=== PATIENT | male | born 1990 | race Caucasian/White ===

== ENCOUNTER 2021-05-08 23:51 | Emergency (ER) | payer MEDICAID ==
[~2021-05-08] VITALS: Ht 182.9 cm; Wt 83.9 kg
[2021-05-09] MEDS ORDERED: ONDANSETRON HCL/PF 4 MG/2 ML VIAL ONE (01:18)
[2021-05-09] MEDS ORDERED: ONDANSETRON HCL/PF - ER 4 MG/2 ML VIAL IV ONE (01:30)
[2021-05-09] MEDS ORDERED: IV NS 0.9% 1,000 ML BAG IV ONE (01:30)
[2021-05-09 01:40] LABS: BASOPHILS % (AUTO) 0.4 % (0.0-2.0); EOSINOPHILS % (AUTO) 0.1 % (0.0-6.0); HEMATOCRIT 36 % (39-51); HEMOGLOBIN 12.3 g/dL (13.5-17.5); LYMPHOCYTES % (AUTO) 11.5 % (20.0-44.0); MEAN CORPUSCULAR HGB CONC 34 g/dl (31.0-36.0); MEAN CORPUSCULAR VOLUME 88 fL (80-96); MONOCYTES # (AUTO) 0.8 K/uL (0.1-1.30); MONOCYTES % (AUTO) 9.4 % (2.0-12.0); NEUTROPHILS # (AUTO) 6.7 K/uL (1.8-8.9); NEUTROPHILS % (AUTO) 78.6 % (43.0-81.0); PLATELET COUNT (AUTO) 268 K/uL (150-450); RED BLOOD CELL COUNT(AUTO) 4.08 MIL/uL (4.5-6.0); WHITE BLOOD COUNT (AUTO) 8.5 K/uL (4.3-11.0)
[2021-05-09 01:52] LABS: CALCIUM, SERUM 8.1 mg/dL (8.5-10.1); CREATININE 0.9 mg/dL (0.6-1.3); POTASSIUM 3.3 mmol/L (3.5-5.1)
[2021-05-09 01:57] LABS: ALBUMIN 3.9 g/dL (3.4-5.0); BILIRUBIN,TOTAL 0.6 mg/dL (0.2-1.0); TOTAL PROTEIN, SERUM 7.2 g/dL (6.4-8.2)
--- NOTE | 2021-05-09 02:19 | NUR ---
CORRECTION: IV 1L NS START TIME: 118 END TIME: 218
[2021-05-09 02:25] VITALS: BP 135/89
--- NOTE | 2021-05-09 02:25 | NUR ---
Patient discharged to home in stable condition. Written and verbal after care instructions given. Patient verbalizes understanding of instruction.
== END 2021-05-09 02:34 | disposition home or self-care (01) ==
LOC: ER 23:56
DX: R11.0 Nausea (principal); R10.13 Epigastric pain; F10.10 Alcohol abuse, uncomplicated; Z60.2 Problems related to living alone; Y90.9 Presence of alcohol in blood, level not specified
CPT/HCPCS: 36415; 80053; 83690; 85025; 96361; 96374; 99283; J2405 ×2; J7030

== ENCOUNTER 2021-05-10 12:46 | Emergency (ER) | payer MEDICAID ==
[~2021-05-10] VITALS: Ht 188 cm; Wt 83.9 kg
[2021-05-10 13:18] LABS: BASOPHILS # (AUTO) 0.1 K/uL (0.0-0.2); BASOPHILS % (AUTO) 1.3 % (0.0-2.0); EOSINOPHILS % (AUTO) 1.1 % (0.0-6.0); HEMATOCRIT 36 % (39-51); HEMOGLOBIN 12.6 g/dL (13.5-17.5); LYMPHOCYTES # (AUTO) 0.8 K/uL (0.8-4.8); LYMPHOCYTES % (AUTO) 8.2 % (20.0-44.0); MEAN CORPUSCULAR HGB CONC 35 g/dl (31.0-36.0); MEAN CORPUSCULAR VOLUME 87 fL (80-96); MONOCYTES % (AUTO) 10.5 % (2.0-12.0); NEUTROPHILS # (AUTO) 7.3 K/uL (1.8-8.9); NEUTROPHILS % (AUTO) 78.9 % (43.0-81.0); PLATELET COUNT (AUTO) 299 K/uL (150-450); RED BLOOD CELL COUNT(AUTO) 4.12 MIL/uL (4.5-6.0); WHITE BLOOD COUNT (AUTO) 9.2 K/uL (4.3-11.0)
[2021-05-10 13:30] LABS: ALANINE AMINOTRANSFERASE 62 U/L (12-78); ALBUMIN 3.7 g/dL (3.4-5.0); ALCOHOL, BLOOD 77 mg/dL (0-0); ALKALINE PHOSPHATASE 95 U/L (46-116); ASPARTATE AMINOTRANSFERASE 86 U/L (15-37); BILIRUBIN,DIRECT 0.2 mg/dL (0.0-0.2); BILIRUBIN,TOTAL 0.8 mg/dL (0.2-1.0); CALCIUM, SERUM 8.5 mg/dL (8.5-10.1); CARBON DIOXIDE 26 mmol/L (21-32); CHLORIDE 102 mmol/L (98-107); CREATININE 0.8 mg/dL (0.6-1.3); GLUCOSE 82 mg/dL (74-106); POTASSIUM 3.2 mmol/L (3.5-5.1); SODIUM SERUM 139 mmol/L (136-145); TOTAL PROTEIN, SERUM 7.3 g/dL (6.4-8.2); UREA NITROGEN, BLOOD 12 mg/dL (7-18)
[2021-05-10] MEDS ORDERED: ONDANSETRON 4 MG TAB.RAPDIS SL ONE (13:30)
[2021-05-10 13:31] LABS: ACETAMINOPHEN < 2 ug/ml (10-30)
[2021-05-10] MEDS ORDERED: ONDANSETRON 4 MG TAB.RAPDIS ONE (13:35)
[2021-05-10] MEDS ORDERED: LORAZEPAM 1 MG TABLET PO ONE (14:00)
[2021-05-10] MEDS ORDERED: LORAZEPAM 1 MG TABLET ONE (14:03)
[2021-05-10 14:28] VITALS: BP 155/100
== END 2021-05-10 12:50 | disposition home or self-care (01) ==
LOC: ER 12:48
DX: F10.10 Alcohol abuse, uncomplicated (principal); Y90.3 Blood alcohol level of 60-79 mg/100 ml; R11.0 Nausea; R00.0 Tachycardia, unspecified; Z20.822 Contact with and (suspected) exposure to COVID-19; Z59.01 Sheltered homelessness
CPT/HCPCS: 36415; 71045; 80048; 80076; 80143; 80320; 84484; 85025; 87426; 93005; 99285; C9803; Q0162; G0480

== ENCOUNTER 2021-05-27 01:20 | Emergency (ER) | payer MEDICAID ==
[~2021-05-27] VITALS: Ht 188 cm; Wt 81.6 kg
[2021-05-27 01:30] VITALS: BP 158/95
--- NOTE | 2021-05-27 02:02 | NUR ---
MAYI SPEAKING TO THE PT
[2021-05-27] MEDS ORDERED: AMOX/CLAVULANATE 875 MG TABLET PO ONE (05:30)
[2021-05-27] MEDS ORDERED: AMOX/CLAVULANATE 875 MG TABLET ONE (05:55)
[2021-05-27] MEDS ORDERED: AMOX-430 PO (06:01)
== END 2021-05-27 06:16 | disposition home or self-care (01) ==
LOC: ER 01:24
DX: S02.609A Fracture of mandible, unspecified, initial encounter for closed fracture (principal); Z60.2 Problems related to living alone; X58.XXXA Exposure to other specified factors, initial encounter; Y93.89 Activity, other specified; Y92.89 Other specified places as the place of occurrence of the external cause; Y99.8 Other external cause status
CPT/HCPCS: 70486-TC

== ENCOUNTER 2021-05-30 17:24 | Emergency (ER) | payer MEDICAID ==
[~2021-05-30] VITALS: Ht 182.9 cm; Wt 88.9 kg
[~2021-05-30 17:24] MED LIST: AMOX-430 PO
--- NOTE | 2021-05-30 19:40 | NUR ---
[id number], passed out in a bushes. bg 125 [employer]. Breathing even and unlaboredf all v/s stable at this time.
--- NOTE | 2021-05-31 01:02 | NUR ---
pt awake , alert, ox4. breathing evenly. PO intake tolerated well. ambulatory w steady gaits. reported feeling well and willing to leave the hospital. made aware
--- NOTE | 2021-05-31 01:20 | NUR ---
Patient discharged to home in stable condition. Written and verbal after care instructions given. Patient verbalizes understanding of instruction.
[2021-05-31 01:24] VITALS: BP 125/78
== END 2021-05-31 01:24 | disposition home or self-care (01) ==
LOC: ER 17:49
DX: F10.129 Alcohol abuse with intoxication, unspecified (principal); Y90.9 Presence of alcohol in blood, level not specified